=== PATIENT | male | born 1980 | race African-American/Black ===

== ENCOUNTER 2024-04-16 07:53 | Inpatient (IN) | payer SELFPAY ==
[2024-04-16] MEDS: Nitroglycerin 50 MG/250 ML BOT 250 ML ONE (13:00)
[2024-04-16] MEDS ORDERED: Nitroglycerin 50 MG/250 ML BOT 250 ML IVPB SCH (13:00)
[2024-04-16 14:13] LABS: PTT 38.2 sec (22.9-36.1)
[2024-04-16 14:14] LABS: INR-International Normal Ratio 1.1; Prothrombin Time 14.6 sec (12.0-14.7)
[2024-04-16 14:37] VITALS: BMI 21.4
[2024-04-16] MEDS: Furosemide 40 MG (4 mL) VIAL SLOW IVP SCH (14:38)
[2024-04-16] MEDS: NIFEdipine XL 30 MG ER.TAB PO SCH (16:00)
[2024-04-16] MEDS: Enoxaparin 60 MG (0.6 mL) SYRINGE SC SCH (16:01)
[2024-04-16 16:43] LABS: Amphetamine Not Detected (NotDetected); Barbiturates Screen Not Detected (NotDetected); Benzodiazepine Screen Not Detected (NotDetected); Cocaine Metabolite Screen Not Detected (NotDetected); Methadone Not Detected (NotDetected); Methamphetamine Not Detected (NotDetected); Opiate Screen Not Detected (NotDetected); Oxycodone Screen Not Detected (NotDetected); Phencyclidine (PCP) Not Detected (NotDetected); THC/Cannabinoid Screen Detected (NotDetected); Tricyclic Screen Not Detected (NotDetected)
[2024-04-16] MEDS ORDERED: hydrALAZINE 20 MG/ML VIAL SLOW IVP PRN (17:21)
[2024-04-16] MEDS: Metoprolol Tartrate 25 MG TAB PO SCH (17:46)
[2024-04-16 18:52] LABS: Troponin I 2.502 ng/mL (< 0.028)
[2024-04-16] MEDS ORDERED: Ondansetron PF 4 MG/2 ML Vial IVP PRN (18:57)
[2024-04-16] MEDS: Ondansetron PF 4 MG/2 ML Vial IVP SCH (19:26)
[2024-04-16] MEDS ORDERED: Labetalol HCl 100 MG/20 ML VIAL SLOW IVP PRN (19:36)
[2024-04-16] MEDS: FLU (Fluarix Triv) TS24-25(6MOS UP)/PF 45 MCG/0.5 ML Syringe IM ONE (21:08)
[2024-04-16] MEDS: Acetaminophen 325 MG TAB PO PRN (21:31)
[2024-04-16] MEDS: Metoprolol Tartrate 50 MG TAB PO SCH (21:32)
[2024-04-16] MEDS: Atorvastatin Calcium 40 MG TAB PO SCH (21:32)
[2024-04-17 04:33] LABS: #Basophils Less than 0.03 10x3/uL (0.0-0.2); #Eosinophils Less than 0.03 10x3/uL (0.0-0.7); %Basophils 0.3 % (0.0-1.0); %Eosinophils 0.3 % (0.0-10.0); %Lymphocytes 15.7 % (21.0-51.0); %Monocytes 10.8 % (0.0-10.0); %Neutrophils 72.6 % (42.0-75.0); Hematocrit 39.8 % (42.0-52.0); Hemoglobin 13.5 g/dL (14.0-18.0); Mean Corpuscular HGB CONC 33.9 g/dL (32.0-36.0); Mean Corpuscular Hemoglobin 28.9 pg (27.0-31.0); Mean Corpuscular Volume 85.2 fL (78.0-98.0); Mean Platelet Volume 10.8 fL (7.4-10.4); Platelet Count 275 10x3/uL (130-400); RBC Distribution Width 12.8 % (11.5-14.5); Red Blood Cell (RBC) Count 4.67 mill/uL (4.70-6.10)
[2024-04-17 04:48] LABS: Hemoglobin A1c 5.3 % (4.0-6.0)
[2024-04-17 05:11] LABS: ALT (SGPT) 56 U/L (8-55); AST (SGOT) 29 U/L (5-34); Albumin 3.1 g/dL (3.5-5.0); Alkaline Phosphatase 57 U/L (40-110); Bilirubin, Direct 0.4 mg/dL (0.1-0.3); Bilirubin, Total 1.1 mg/dL (0.2-1.2); Protein, Total 6.6 g/dL (6.0-8.3)
[2024-04-17 05:13] LABS: Anion Gap 13 mmol/L (10-20); BUN (Urea Nitrogen) 22 mg/dL (8.9-20.6); Calc. Creatinine Clearance 53 mL/min (70-130); Carbon Dioxide 25 mmol/L (22-29); Cardiac Risk 4.8 (Less than 4.5); Chloride 107 mmol/L (98-107); Cholesterol 155 mg/dl (< 200 Desired); Estimated GFR 57; Glucose 102 mg/dL (70-105); HDL Cholesterol 32 mg/dL (>60 Neg Risk); LDL Cholesterol, Calculated 106 mg/dL; Magnesium 1.6 mg/dL (1.6-2.6); Sodium 141 mmol/L (136-145); Triglycerides 86 mg/dL (Less than 150)
[2024-04-17] MEDS: Aspirin Chewable 81 MG TAB PO SCH (08:53)
[2024-04-17] MEDS: Enoxaparin 60 MG (0.6 mL) SYRINGE SC SCH (08:53)
[2024-04-17] MEDS: NIFEdipine XL 30 MG ER.TAB PO SCH (08:53)
[2024-04-17 10:09] VITALS: BMI 21.5
[2024-04-17] MEDS ORDERED: Electrolyte Replacement Protocol FS PRN (13:30)
[2024-04-17] MEDS: Magnesium 2 GM/50 ML(in water) 2 GM in Premix 1 BAG IVPB SCH (15:54)
[2024-04-17] MEDS: Electrolyte Replacement Protocol 1 EACH FS ONE (15:55)
[2024-04-17] MEDS: Sacubitril 24MG/Valsartan 26 MG TAB PO SCH (20:29)
[2024-04-18 04:25] LABS: #Basophils Less than 0.03 10x3/uL (0.0-0.2); %Basophils 0.2 % (0.0-1.0); %Eosinophils 0.9 % (0.0-10.0); %Lymphocytes 30.7 % (21.0-51.0); %Monocytes 12.8 % (0.0-10.0); %Neutrophils 55.2 % (42.0-75.0); Hematocrit 45.8 % (42.0-52.0); Hemoglobin 15.6 g/dL (14.0-18.0); Mean Corpuscular HGB CONC 34.1 g/dL (32.0-36.0); Mean Corpuscular Hemoglobin 28.9 pg (27.0-31.0); Mean Corpuscular Volume 84.8 fL (78.0-98.0); Mean Platelet Volume 10.6 fL (7.4-10.4); Platelet Count 244 10x3/uL (130-400); RBC Distribution Width 12.8 % (11.5-14.5)
[2024-04-18 04:59] LABS: Anion Gap 14 mmol/L (10-20); BUN (Urea Nitrogen) 26 mg/dL (8.9-20.6); Calc. Creatinine Clearance 51 mL/min (70-130); Carbon Dioxide 25 mmol/L (22-29); Chloride 103 mmol/L (98-107); Estimated GFR 54; Glucose 113 mg/dL (70-105); Magnesium 2.1 mg/dL (1.6-2.6); Potassium 3.3 mmol/L (3.5-5.1); Sodium 139 mmol/L (136-145)
[2024-04-18] MEDS: Potassium Chloride 20 MEQ TAB PO SCH (06:06)
[2024-04-18] MEDS: Carvedilol 3.125 MG TAB PO SCH (08:43)
[2024-04-18] MEDS: Enoxaparin 40 MG (0.4 mL) SYRINGE SC SCH (08:44)
[2024-04-18] MEDS ORDERED: Metoprolol Succinate XL 50 MG ER.TAB PO SCH (09:00)
[2024-04-18] MEDS ORDERED: Metoprolol Succinate XL 25 MG ER.TAB PO SCH (09:00)
[2024-04-18] MEDS ORDERED: Furosemide 40 MG (4 mL) VIAL SLOW IVP SCH (09:00)
[2024-04-18] MEDS: Enoxaparin 60 MG (0.6 mL) SYRINGE SC SCH (11:08)
[2024-04-18] MEDS: Communication Order-Pharmacy FS ONE (12:15)
[2024-04-18] MEDS: Dapagliflozin Propanediol 10 MG TAB PO SCH ×2 (16:50→16:54)
[2024-04-18] MEDS: Carvedilol 6.25 MG TAB PO SCH (16:50)
[2024-04-18] MEDS ORDERED: Enoxaparin 60 MG (0.6 mL) SYRINGE SC SCH (21:00)
[2024-04-18] MEDS: Apixaban 5 MG TAB PO SCH (21:00)
[2024-04-19 05:03] LABS: #Basophils 0.03 10x3/uL (0.0-0.2); %Basophils 0.7 % (0.0-1.0); %Eosinophils 1.6 % (0.0-10.0); %Lymphocytes 40.5 % (21.0-51.0); %Monocytes 11.9 % (0.0-10.0); %Neutrophils 44.4 % (42.0-75.0); Hematocrit 51.2 % (42.0-52.0); Hemoglobin 16.8 g/dL (14.0-18.0); Mean Corpuscular HGB CONC 32.8 g/dL (32.0-36.0); Mean Corpuscular Hemoglobin 29.2 pg (27.0-31.0); Mean Platelet Volume 10.5 fL (7.4-10.4); Platelet Count 310 10x3/uL (130-400); RBC Distribution Width 13.1 % (11.5-14.5); Red Blood Cell (RBC) Count 5.75 mill/uL (4.70-6.10)
[2024-04-19 05:16] LABS: Anion Gap 16 mmol/L (10-20); BUN (Urea Nitrogen) 28 mg/dL (8.9-20.6); Calc. Creatinine Clearance 50 mL/min (70-130); Calcium 9.1 mg/dL (7.8-10.44); Carbon Dioxide 21 mmol/L (22-29); Chloride 105 mmol/L (98-107); Estimated GFR 51; Glucose 81 mg/dL (70-105); Magnesium 2.2 mg/dL (1.6-2.6); Potassium 4.4 mmol/L (3.5-5.1); Sodium 138 mmol/L (136-145)
[2024-04-20 12:21] VITALS: TEMP 98.5
[2024-04-20 13:46] VITALS: BP 116/86
== END 2024-04-20 15:30 | disposition home or self-care (01) | DRG 280 ==
LOC: CCU 11:45 → PCU 04-17 15:48
PROVIDERS: ADMIT Internal Medicine; ATTEND Internal Medicine
DX: I13.0 Hypertensive heart and chronic kidney disease with heart failure and stage 1 through stage 4 chronic kidney disease, or unspecified chronic kidney disease (principal); I50.23 Acute on chronic systolic (congestive) heart failure; I21.A1 Myocardial infarction type 2; I16.1 Hypertensive emergency; N17.9 Acute kidney failure, unspecified; E87.20 Acidosis, unspecified; Z91.148 Patient's other noncompliance with medication regimen for other reason; F12.10 Cannabis abuse, uncomplicated; F17.210 Nicotine dependence, cigarettes, uncomplicated; F10.90 Alcohol use, unspecified, uncomplicated; N20.0 Calculus of kidney; I42.9 Cardiomyopathy, unspecified; E83.42 Hypomagnesemia; E87.6 Hypokalemia; N28.89 Other specified disorders of kidney and ureter
CPT/HCPCS: 36415; 76770; 80048; 80061; 80076; 80306; 83036; 83735; 84443; 85025; 85610; 85730; 86850; 86900; 86901; 93306; 93798; J1650; J1940; J2405; J3475

== ENCOUNTER 2024-05-01 01:40 | Emergency (ER) | payer SELFPAY ==
[2024-05-01 03:03] LABS: #Basophils Less than 0.03 10x3/uL (0.0-0.2); %Basophils 0.4 % (0.0-1.0); %Eosinophils 2.3 % (0.0-10.0); %Lymphocytes 29.8 % (21.0-51.0); %Monocytes 8.2 % (0.0-10.0); %Neutrophils 59.1 % (42.0-75.0); Hematocrit 40.5 % (42.0-52.0); Hemoglobin 13.9 g/dL (14.0-18.0); Mean Corpuscular HGB CONC 34.3 g/dL (32.0-36.0); Mean Corpuscular Hemoglobin 29.2 pg (27.0-31.0); Mean Corpuscular Volume 85.1 fL (78.0-98.0); Mean Platelet Volume 11.8 fL (7.4-10.4); Platelet Count 210 10x3/uL (130-400); RBC Distribution Width 12.8 % (11.5-14.5); Red Blood Cell (RBC) Count 4.76 mill/uL (4.70-6.10)
[2024-05-01 03:18] LABS: ALT (SGPT) 30 U/L (Less than 45); AST (SGOT) 34 U/L (11-34); Albumin 3.1 g/dL (3.1-4.5); Alkaline Phosphatase 50 U/L (40-110); Anion Gap 14 mmol/L (10-20); BUN (Urea Nitrogen) 20 mg/dL (8.9-20.6); Bilirubin, Total 0.3 mg/dL (0.3-1.2); Calc. Creatinine Clearance 0 mL/min (70-130); Calcium 8.5 mg/dL (7.8-10.44); Carbon Dioxide 24 mmol/L (22-29); Chloride 111 mmol/L (98-107); Estimated GFR 58; Globulin 3.2 g/dL (2.4-3.5); Glucose 96 mg/dL (70-105); Potassium 4.1 mmol/L (3.5-5.1); Protein, Total 6.3 g/dL (6.0-8.3); Sodium 145 mmol/L (136-145)
[2024-05-01 03:23] LABS: Troponin I 0.072 ng/mL (< 0.028)
[2024-05-01] MEDS ORDERED: Furosemide 100 MG (10 mL) VIAL ONE (03:29)
== END 2024-05-01 04:52 | disposition home or self-care (01) ==
LOC: ERS 01:40
DX: I11.0 Hypertensive heart disease with heart failure (principal); I50.9 Heart failure, unspecified
CPT/HCPCS: 71045; 80053; 83880; 84484; 85025; 85379; 93005; 96374; J1940